=== PATIENT | male | born 1985 | race American Indian/Alaskan Native ===

== ENCOUNTER 2018-07-30 18:14 | Emergency (ER) | payer BC ==
[2018-07-30] MEDS ORDERED: IBUPROFEN PO ONE (20:34)
--- NOTE | 2018-07-30 20:39 | Emergency Department Report ---
ED General Adult HPI - General Chief complaint: Chest Pain Stated complaint: CHEST PAIN/TIGHTNESS Time Seen by Provider: 07/30/18 19:49 Source: patient Mode of arrival: Ambulatory Limitations: No Limitations - History of Present Illness Initial comments: Patient -[place] male history of bronchitis who presents for chest tightness time episode this a.m. patient states thatthat lasted about 15 minutes pain was 4/10 exacerbated by deep breathing. There is no cough no wheezing no fevers no chills no nausea vomiting no back pain no diaphoresis. Patient denies any symptoms at this time states he just checked Onset/Timin -: days(s) Location: chest Severity scale (0 -10): 0 Quality: sharp Consistency: intermittent Improves with: rest Worsens with: movement, other (deep breathing ) Treatments Prior to Arrival: none - Related Data Previous Rx's Medication Instructions Recorded Last Taken Type ALBUTEROL Inhaler(NF) [VENTOLIN 2 puff IH Q4H PRN #1 inha 07/30/18 Unknown Rx Inhaler(NF)] Ibuprofen 800 mg PO TID #30 tablet 07/30/18 Unknown Rx predniSONE [Deltasone] 40 mg PO QDAY 5 Days #10 tab 07/30/18 Unknown Rx Allergies Allergy/AdvReac Type Severity Reaction Status Date / Time No Known Allergies Allergy Verified 07/30/18 19:07 ED Review of Systems ROS: Stated complaint: CHEST PAIN/TIGHTNESS Other details as noted in HPI Constitutional: denies: chills, fever Eyes: denies: eye pain, eye discharge, vision change ENT: denies: ear pain, throat pain Respiratory: denies: cough, shortness of breath, wheezing Cardiovascular: chest pain. denies: palpitations, edema, syncope, paroxysmal nocturnal dyspnea Endocrine: no symptoms reported Gastrointestinal: denies: abdominal pain, nausea, vomiting, diarrhea Genitourinary: denies: urgency, dysuria Musculoskeletal: denies: back pain, joint swelling, arthralgia Skin: denies: rash, lesions Neurological: denies: headache, weakness, paresthesias Psychiatric: denies: anxiety, depression Hematological/Lymphatic: denies: easy bleeding, easy bruising ED Past Medical Hx - Social History Smoking Status: Never Smoker Substance Use Type: Alcohol - Medications Home Medications: Home Medications Medication Instructions Recorded Confirmed Last Taken Type ALBUTEROL Inhaler(NF) [VENTOLIN 2 puff IH Q4H PRN #1 inha 07/30/18 Unknown Rx Inhaler(NF)] Ibuprofen 800 mg PO TID #30 tablet 07/30/18 Unknown Rx predniSONE [Deltasone] 40 mg PO QDAY 5 Days #10 tab 07/30/18 Unknown Rx ED Physical Exam - General Limitations: No Limitations General appearance: alert, in no apparent distress - Head Head exam: Present: atraumatic, normocephalic - Eye Eye exam: Present: normal appearance, PERRL, EOMI Pupils: Present: normal accommodation - ENT ENT exam: Present: normal orophraynx, mucous membranes moist, TM's normal bilaterally, normal external ear exam - Neck Neck exam: Present: normal inspection, full ROM. Absent: tenderness, meningismus, lymphadenopathy, thyromegaly - Respiratory Respiratory exam: Present: normal lung sounds bilaterally, chest wall tenderness. Absent: respiratory distress, wheezes, stridor, prolonged expiratory - Cardiovascular Cardiovascular Exam: Present: regular rate, normal rhythm, normal heart sounds. Absent: systolic murmur, diastolic murmur, rubs, gallop - GI/Abdominal GI/Abdominal exam: Present: soft, normal bowel sounds - Rectal Rectal exam: Present: deferred - Extremities Exam Extremities exam: Present: normal inspection - Back Exam Back exam: Present: normal inspection, full ROM. Absent: tenderness, CVA tenderness (R), CVA tenderness (L), muscle spasm - Neurological Exam Neurological exam: Present: alert, oriented X3 - Psychiatric Psychiatric exam: Present: normal affect, normal mood - Skin Skin exam: Present: warm, dry, intact, normal color. Absent: rash ED Course Vital Signs 07/30/18 07/30/18 20:42 20:43 Respiratory 18 18 Rate O2 Sat by Pulse 99 Oximetry ED Medical Decision Making - EKG Data EKG shows normal: sinus rhythm Rate: normal - EKG Data When compared to previous EKG there are: previous EKG unavailable Interpretation: normal EKG (ekg interp by ed attending NSR no ST elevation ), nonspecific ST-T wave alexandro (Early repole ) - Radiology Data Radiology results: image reviewed Normal CXR no infiltrate no opacties - Medical Decision Making Symptoms improved cxr normal plan, ibuprofen prn pain , albuterol inhaler prn sob chest tightness, short burst prednisone for next 5 days pt will follow up with pcp in 2-3 days given referral to [facility] will follow up with same in 2-3 days pt verbalized agreement and understanding of discharge plan, pt is currently a/o x 3 ambulatory with steady gait. vital signs noted bp: 125/85, hr: 16, T: 97.8, P:70 O2 stat: 99 % r/a Critical care attestation.: If time is entered above; I have spent that time in minutes in the direct care of this critically ill patient, excluding procedure time. ED Disposition Clinical Impression: Chest wall pain Disposition: - TO HOME OR SELFCARE Is pt being admited?: No Does the pt Need Aspirin: No Condition: Stable Instructions: Chest Pain (ED), Costochondritis (ED) Prescriptions: predniSONE [Deltasone] 40 mg PO QDAY 5 Days #10 tab Ibuprofen 800 mg PO TID #30 tablet ALBUTEROL Inhaler(NF) [VENTOLIN Inhaler(NF)] 2 puff IH Q4H PRN #1 inha PRN Reason: shortness breath wheezing Referrals: MELODIE ALMEIDA MD [Primary Care Provider] - 3-5 Days Forms: Work/School Release Form(ED) Time of Disposition: 21:25
[2018-07-30 21:32] VITALS: BP 122/80
--- NOTE | 2018-07-30 22:30 | XRay Report ---
PROCEDURE: XR CHEST ROUTINE 2V TECHNIQUE: PA and lateral views of the chest were obtained. HISTORY: chest pain COMPARISONS: None FINDINGS: Heart size and pulmonary vasculature appear normal. The lungs are clear. No infiltrates masses effusi ons or pneumothorax are identified. No acute bone abnormalities are visualized. IMPRESSION: Negative exam.. This document is electronically signed by Kai Lopez MD., July 30 2018 10:27:13 PM ET
== END 2018-07-30 21:35 | disposition home or self-care (01) ==
LOC: ED 18:14
DX: R07.89 Other chest pain (principal)
CPT/HCPCS: 71046; 93005; 93010